=== PATIENT | female | born 1965 | race Two or more races ===

== ENCOUNTER → 2020-10-14 | Outpatient (CLI) | payer OTHER | END | disposition home or self-care (01) | LOC: OFIC 805 14:10 | PROVIDERS: ATTEND Otolaryngology Otology & Neurotology | DX: H69.81 Other specified disorders of Eustachian tube, right ear (principal); J00 Acute nasopharyngitis [common cold]; H74.8X1 Other specified disorders of right middle ear and mastoid ==